=== PATIENT | male | born 1995 | race African-American/Black ===

== ENCOUNTER 2017-04-03 19:47 | Emergency (ER) | payer SELFPAY ==
[2017-04-03] MEDS ORDERED: IBUPROFEN 800 MG TABLET PO ONE (23:20)
--- NOTE | 2017-04-03 23:23 | ER Document Report ---
ED General - General Chief Complaint: Sore Throat Stated Complaint: BACK PAIN Time Seen by Provider: 04/03/17 21:44 Mode of Arrival: Ambulatory Information source: Patient Notes: 21-year-old male presents with complaints of a sore throat of 2-3 day duration. Patient denies any nausea vomiting admits to fevers. Admits to contact with children and pets TRAVEL OUTSIDE OF THE [place] IN LAST 30 DAYS: No - HPI Onset: Other Onset/Duration: Persistent Quality of pain: Burning Severity: Mild Pain Level: 1 Associated symptoms: Sore throat Exacerbated by: Denies Relieved by: Denies Similar symptoms previously: No Recently seen / treated by doctor: No Past Medical History - Social History Smoking Status: Current Every Day Smoker Cigarette use (# per day): Yes Chew tobacco use (# tins/day): No Smoking Education Provided: Yes - Patient counselled regarding cessation for 4 minutes Family History: Reviewed & Not Pertinent Patient has suicidal ideation: No Patient has homicidal ideation: No Renal/ Medical History: Denies: Hx Peritoneal Dialysis Review of Systems - Review of Systems Notes: REVIEW OF SYSTEMS: CONSTITUTIONAL : Denies fever, chills, or sweats. Denies recent illness. EENT: Admits to sore throat CARDIOVASCULAR: Denies chest pain. Denies palpitations or racing or irregular heart beat. Denies ankle edema. RESPIRATORY: Denies cough, cold, or chest congestion. Denies shortness of breath, difficulty breathing, or wheezing. GASTROINTESTINAL: Denies abdominal pain or distention. Denies nausea, vomiting , or diarrhea. Denies blood in vomitus, stools, or per rectum. Denies black, tarry stools. Denies constipation. GENITOURINARY: Denies difficulty urinating, painful urination, burning, frequency, blood in urine, or discharge. MUSCULOSKELETAL: Denies back or neck pain or stiffness. Denies joint pain or swelling. SKIN: Denies rash, lesions or sores. HEMATOLOGIC : Denies easy bruising or bleeding. LYMPHATIC: Denies swollen, enlarged glands. NEUROLOGICAL: Denies confusion or altered mental status. Denies passing out or loss of consciousness. Denies dizziness or lightheadedness. Denies headache. Denies weakness or paralysis or loss of use of either side. Denies problems with gait or speech. Denies sensory loss, numbness, or tingling. Denies seizures. PSYCHIATRIC: Denies anxiety or stress. Denies depression, suicidal ideation, or homicidal ideation. ALL OTHER SYSTEMS REVIEWED AND NEGATIVE. Dictation was performed using [employer] voice recognition software PHYSICAL EXAMINATION: GENERAL: Well-appearing, well-nourished and in no acute distress. HEAD: Atraumatic, normocephalic. EYES: Pupils equal round and reactive to light, extraocular movements intact, sclera anicteric, conjunctiva are normal. ENT: bilateral tonsillar ulcers noted , airway patent NECK: Normal range of motion, supple without lymphadenopathy LUNGS: Breath sounds clear to auscultation bilaterally and equal. No wheezes rales or rhonchi. HEART: Regular rate and rhythm without murmurs ABDOMEN: Soft, nontender, nondistended abdomen. No guarding, no rebound. No masses appreciated. Musculoskeletal: Normal range of motion, no pitting or edema. No cyanosis. NEUROLOGICAL: Cranial nerves grossly intact. Normal speech, normal gait. Normal sensory, motor exams PSYCH: Normal mood, normal affect. SKIN: Warm, Dry, normal turgor, no rashes or lesions noted. Physical Exam - Vital signs Vitals: Temp Pulse Resp BP Pulse Ox 100 F 91 18 125/58 L 99 04/03/17 23:39 04/03/17 23:39 04/03/17 23:39 04/03/17 23:39 04/03/17 23:39 Course - Re-evaluation Re-evalutation: 04/04/17 03:59 Strep mono were negative patient otherwise looks well, patient does have ulcerations which are more likely to be secondary to a viral infection. Patient will be discharged with close follow After performing a Medical Screening Examination, I estimate there is LOW risk for ACUTE CORONARY SYNDROME, RESPIRATORY FAILURE, SEPSIS OR MENINGITIS, thus I consider the discharge disposition reasonable. I have reevaluated this patient multiple times and no significant life threatening changes are noted. The patient and I have discussed the diagnosis and risks, and we agree with discharging home with close follow-up. We also discussed returning to the Emergency Department immediately if new or worsening symptoms occur. We have discussed the symptoms which are most concerning (e.g., changing or worsening pain, trouble swallowing or breathing, neck stiffness, fever) that necessitate immediate return. - Vital Signs Vital signs: Temp Pulse Resp BP Pulse Ox 100 F 91 18 125/58 L 99 04/03/17 23:39 04/03/17 23:39 04/03/17 23:39 04/03/17 23:39 04/03/17 23:39 Discharge - Discharge Clinical Impression: Viral sore throat Fever Qualifiers: Fever type: unspecified Qualified Code(s): R50.9 - Fever, unspecified Condition: Stable Disposition: HOME, SELF-CARE Instructions: Sore Throat ([facility]) Additional Instructions: Follow up with your physician tomorrow for further care or return to the ED IMMEDIATELY if symptoms worsen or new concerns occur. If you cannot afford to follow up with your primary care physician a list of low cost clinics have been provided at the end of your discharge papers as well.
[2017-04-03 23:42] VITALS: BP 125/58
== END 2017-04-03 23:39 | disposition home or self-care (01) ==
LOC: ER 19:47
DX: J02.9 Acute pharyngitis, unspecified (principal); B34.9 Viral infection, unspecified; F17.210 Nicotine dependence, cigarettes, uncomplicated; R50.9 Fever, unspecified
CPT/HCPCS: 36415; 86308; 87070; 87880; 99283; 99406

== ENCOUNTER 2017-04-04 21:35 | Emergency (ER) | payer SELFPAY ==
--- NOTE | 2017-04-04 23:32 | ER Document Report ---
HPI - HPI Patient complains to provider of: dehydration and back pain Onset: Other Onset/Duration: Persistent Severity: Severe Pain Level: 5 Context: Patient presents today with request for CT scan of his back and IV fluids. Patient reports that he feels like he is dehydrated but reports he is eating drinking without problems. Patient denies fever vomiting diarrhea. Reports he has a sore throat. Patient also reports he feels like he has chills. He also reports that his low back has been hurting for the past few months. Denies trauma. Denies urinary or bowel incontinence or retention. Denies numbness and tingling. Denies prior history of injury to his back. Patient is nontoxic looking looks fine no distress speaking in a clear voice. The patient recently moved here from [place]. Associated Symptoms: None. denies: Diarrhea, Fever, Vomiting Exacerbated by: Denies Relieved by: Denies Similar symptoms previously: Yes Recently seen / treated by doctor: Yes - CONSTITUTIONAL Constitutional: REPORTS: Chills - EENT EENT: REPORTS: Sore Throat - GASTROINTESTINAL Gastrointestinal: DENIES: Abdominal Pain, Nausea, Patient vomiting, Diarrhea - DERM Skin Color: Normal Skin Problems: None Past Medical History - General Information source: Patient - Social History Smoking Status: Current Every Day Smoker Cigarette use (# per day): Yes Chew tobacco use (# tins/day): No Frequency of alcohol use: None Drug Abuse: None Lives with: Family Family History: Reviewed & Not Pertinent Patient has suicidal ideation: No Patient has homicidal ideation: No - Medical History Medical History: Negative Renal/ Medical History: Denies: Hx Peritoneal Dialysis Surgical Hx: Negative Vertical Provider Document - CONSTITUTIONAL Agree With Documented VS: Yes Exam Limitations: No Limitations General Appearance: WD/WN, No Apparent Distress - nontoxic looking - INFECTION CONTROL TRAVEL OUTSIDE OF THE [place] IN LAST 30 DAYS: No - HEENT HEENT: Atraumatic, Normocephalic. negative: Conjuctival Injection, Pharyngeal Exudate, Pharyngeal Erythema - No peritonsillar abscess good clear voice no trismus, no ludwigs, bilateral tonsillar ulceration noted - NECK Neck: Normal Inspection, Supple. negative: Lymphadenopathy-Left, Lymphadenopathy-Right - RESPIRATORY Respiratory: Breath Sounds Normal, No Respiratory Distress O2 Sat by Pulse Oximetry: 97 - CARDIOVASCULAR Cardiovascular: Regular Rate, Regular Rhythm - GI/ABDOMEN Gastrointestinal: Abdomen Soft, Abdomen Non-Tender - BACK Back: Normal Inspection - no obvious deformity, no erythema/swelling/warmth, good distal movement and sensation, no weakness, good reflexes, complains of paraspinal low back tenderness, no vertebral tenderness Course - Re-evaluation Re-evalutation: 04/04/17 23:40 The patient presents with low back pain without signs of spinal cord compression , cauda equine syndrome, infection, aneurysm, or other serious etiology. The patient is neurologically intact. The patient has good distal movement and sensation, denies urinary or bowel incontinence/retention. Given the extremely low risk of these diagnosis, further testing and evaluation for these possibilities does not appear to be indicated at this time. The patient has been instructed to return if the symptoms worsen or change in anyway. - Vital Signs Vital signs: Temp Pulse Resp BP Pulse Ox 98.8 F 82 18 127/77 H 97 04/04/17 22:18 04/04/17 22:18 04/04/17 22:18 04/04/17 22:18 04/04/17 22:18 Discharge - Discharge Clinical Impression: Back pain, Sore throat, Chills, Elevated blood pressure reading Condition: Stable Disposition: HOME, SELF-CARE Instructions: Ice Packs ([facility]), Low Back Pain ([facility]), Sore Throat ([facility]), Acetaminophen, Use of [id number] Ibuprofen ([facility]), Family Physicians / Practices, [facility] Additional Instructions: *You have been evaluated for a sore throat, back pain *Take tylenol or motrin as indicated *Lift with your legs not back *Throat lozenges for comfort *Push fluids to stay well hydrated *Follow-up with a primary care provider within one week for recheck *Return to ED for worsening condition change, needs Monitor your blood pressure. Your blood pressure was elevated today. This may be because you were anxious, in pain or because you need medication. It is important to follow up with your primary care provider for full evaluation. Forms: Elevated Blood Pressure
[2017-04-04 23:58] VITALS: BP 124/70
== END 2017-04-04 23:40 | disposition home or self-care (01) ==
LOC: ER 21:35
DX: J02.9 Acute pharyngitis, unspecified (principal); M54.9 Dorsalgia, unspecified; R03.0 Elevated blood-pressure reading, without diagnosis of hypertension; R68.83 Chills (without fever); E86.0 Dehydration; F17.210 Nicotine dependence, cigarettes, uncomplicated
CPT/HCPCS: 99283